=== PATIENT | female | born 1990 | race African-American/Black ===

== ENCOUNTER 2023-05-19 22:23 | Emergency (ER) | payer OTHER, SELFPAY ==
[2023-05-19] MEDS ORDERED: Fluorescein Opthalmic Strip ONE (22:44)
[2023-05-19] MEDS ORDERED: Proparacaine 0.5% Opth 15 ML BOT ONE (22:44)
== END 2023-05-19 23:03 | disposition home or self-care (01) ==
LOC: CSHERS 22:23
DX: H10.9 Unspecified conjunctivitis (principal); I10 Essential (primary) hypertension
CPT/HCPCS: 99282